=== PATIENT | female | born 1990 | race Caucasian/White ===

== ENCOUNTER 2016-10-13 17:16 | Inpatient (IN) | payer SELFPAY ==
[~2016-10-13] VITALS: Ht 167.6 cm; Wt 71.2 kg
[~2016-10-13 17:16] MED LIST: ANTABUSE250 MG PO; ATIVAN0.5 MG PO; BUSPIRONE HCL15 MG PO; GEODON20 MG PO; GLYCOPYRROLATE1 MG PO; MACROBID100 MG PO; MULTIVITAMIN1 EAC2 PO; TRILEPTAL300 MG PO; ULTRAM50 MG PO; VENLAFAXINE H37.5 M3 PO
[2016-10-13 17:52] LABS: BASOPHIL COUNT 0.1 K/uL (0-0.1); EOSINOPHIL COUNT 0.1 K/uL (0-0.3); HEMATOCRIT 38.2 % (36.0-46.0); IMMATURE GRANULOCYTE (%) 0.3 % (0.0-0.7); INSTRUMENT ABS NEUTROPHIL CT 4.9 K/uL; LYMPHOCYTE COUNT 4.1 K/uL (1.0-2.8); MCH 33.4 PG (29.0-34.0); MCV 98.2 FL (83-99); MEAN PLAT.VOLUME 8.9 uM^3 (9.5-12.4); MONOCYTE (%) 5.7 % (3-12); MONOCYTE COUNT 0.6 K/uL (0-0.8); NEUTROPHIL (%) 50.3 % (45-76); NEUTROPHIL COUNT 4.9 K/uL (1.8-6.4); PLATELET COUNT 244 K/uL (156-360); RBC DIS.WIDTH-SD 46.3 % (39-53); RED BLOOD COUNT 3.89 M/uL (3.80-5.20); WHITE BLOOD COUNT 9.8 K/uL (4.1-10.2)
[2016-10-13 18:00] LABS: CHLORIDE 112 mEq/L (99-109); POTASSIUM 3.6 mEq/L (3.7-5.4); SODIUM 145 mEq/L (136-147)
[2016-10-13 18:02] LABS: GLUCOSE 93 mg/dL (70-99)
[2016-10-13 18:03] LABS: ANION GAP 16 MEQ/L (2-14)
[2016-10-13 18:05] LABS: SERUM ETHYL ALCOHOL 336 mg/dL
[2016-10-13 18:06] LABS: GFR ESTIMATE (CALCULATED) > 59 mL/min/
[2016-10-13 18:07] LABS: UREA NITROGEN (BUN) 13 mg/dL (9-23)
[2016-10-14 02:27] LABS: AMPHETAMINE NEGATIVE (500 ng/mL); BARBITURATES NEGATIVE (200 ng/mL); BENZODIAZEPINES PRESUMPTIVE POSITIVE (150 ng/mL); COCAINE NEGATIVE (150 ng/mL); INTERNAL CONTROLS VALID? YES; METHADONE NEGATIVE (200 ng/mL); METHAMPHETAMINE NEGATIVE (500 ng/mL); OPIATES (MORPHINE) NEGATIVE (100 ng/mL); OXYCODONE NEGATIVE (100 ng/mL); PHENCYCLIDINE NEGATIVE (25 ng/mL); PROPOXYPHENE NEGATIVE (300 ng/mL); THC CANNABINOIDS NEGATIVE (50 ng/mL); TRICYCLIC ANTIDEPRESSANTS NEGATIVE (300 ng/mL)
[2016-10-14 02:28] LABS: ADD MEDTOX COMMENT Y
[2016-10-14 02:56] LABS: BENZODIAZEPINES QUANT VALUE 0 NG/ML; BENZODIAZEPINES, URINE SCREEN Negative (200 ng/mL)
[2016-10-14 10:10] VITALS: BP 120/77
[2016-10-14 11:29] VITALS: BP 120/77
[2016-10-14 15:18] VITALS: BP 115/65
[2016-10-15 07:24] VITALS: BP 123/58
[2016-10-15 15:21] VITALS: BP 120/76
[2016-10-16 07:30] VITALS: BP 108/64
[2016-10-16 15:31] VITALS: BP 124/77
[2016-10-17 07:35] VITALS: BP 103/67
[2016-10-17] MEDS ORDERED: ZOLOFT100 MG PO (09:50)
[2016-10-17] MEDS ORDERED: BUSPAR10 MG PO (09:50)
[2016-10-17] MEDS ORDERED: TRAZODONE HCL50 MG PO (09:52)
== END 2016-10-17 13:44 | disposition home or self-care (01) | DRG 885 ==
LOC: EME 17:16 → 1WEST 10-14 06:22 → EDOF 10-14 06:22 → 1WEST 10-14 06:22
PROVIDERS: Emergency Medicine
DX: F33.1 Major depressive disorder, recurrent, moderate (principal); R45.851 Suicidal ideations; F10.229 Alcohol dependence with intoxication, unspecified; Y90.8 Blood alcohol level of 240 mg/100 ml or more; Z91.19 Patient's noncompliance with other medical treatment and regimen; F41.0 Panic disorder [episodic paroxysmal anxiety]; F41.1 Generalized anxiety disorder; F17.200 Nicotine dependence, unspecified, uncomplicated; E28.2 Polycystic ovarian syndrome; Z81.8 Family history of other mental and behavioral disorders
CPT/HCPCS: 80048; 84999; 85025; 90837; 97150 GO; 97165 GO; 99281; 99285; G0480; J1630; J2060